=== PATIENT | female | born 1955 | race Caucasian/White ===

== ENCOUNTER 2019-03-12 14:08 | Emergency (ER) | payer BC ==
[~2019-03-12] VITALS: Ht 172.7 cm; Wt 68.0 kg
[2019-03-12] MEDS ORDERED: IBUPROFEN 600 MG TABLET ONE (14:37)
[2019-03-12] MEDS ORDERED: IBUPROFEN 600 MG TABLET PO ONE (14:45)
--- NOTE | 2019-03-12 16:20 | NUR ---
Written and verbal after care instructions given to patient and spouse. Patient and family verbalized understanding & compliance of instructions. Pending CD copy of the x-ray & ortho splint placement@this time.
[2019-03-12] MEDS ORDERED: HYDROCODONE/APAP 5-325MG TABLET ONE (16:54)
--- NOTE | 2019-03-12 17:11 | NUR ---
Patient is unable to ambulate, for more x-rays@this time
[2019-03-12] MEDS ORDERED: HYDROCODONE/APAP 5-325MG TABLET PO ONE (17:15)
--- NOTE | 2019-03-12 18:02 | NUR ---
Arm splint & sling are on. CMS intact. Patient is for CT scan@this time. Patient is resting comfortably on gurney. Spouse is at bedside.
--- NOTE | 2019-03-12 20:00 | NUR ---
Patient discharged to home in stable conditon. Written and verbal after care instructions given. Patient verbalizes understanding of instructions. patient self ambulatory wit steady gait prior to discharge. all belongings and exit care package taken with patient at discharge. patient wheel chairs out with Charge Nurse Moise.
[2019-03-12 22:52] VITALS: BP 108/70
== END 2019-03-12 20:00 | disposition home or self-care (01) ==
LOC: ER 14:08
DX: S42.201A Unspecified fracture of upper end of right humerus, initial encounter for closed fracture (principal); S09.90XA Unspecified injury of head, initial encounter; M25.551 Pain in right hip; R10.2 Pelvic and perineal pain; Z88.0 Allergy status to penicillin; W11.XXXA Fall on and from ladder, initial encounter; Y93.89 Activity, other specified; Y92.89 Other specified places as the place of occurrence of the external cause; Y99.8 Other external cause status
CPT/HCPCS: 70450; 72192; 73060; 73502; A4663